=== PATIENT | female | born 1970 ===

== ENCOUNTER 2022-03-13 07:12 | Emergency (ER) | payer MEDICARE ==
[2022-03-13 07:58] LABS: ESTIMATED GFR 89 mL/min (>60)
[2022-03-13] MEDS: Iopamidol 755 Mg/ML 100 ML Bottle IV ONE (08:28)
[2022-03-13] MEDS: Ertapenem 1 GM in Sodium Chloride 0.9% 50 ML IV ONE (10:10)
[2022-03-13] MEDS: Lactated Ringers 1,000 ML IV ONE (10:10)
[2022-03-13] MEDS: Ketorolac 30 MG/ML SDV IVPUSH ONE (11:17)
[2022-03-13] MEDS: Glucose Gel 15 GM in 37.5 GM Tube PO ONE (11:51)
== END 2022-03-13 11:53 ==
LOC: FB.ED 07:12
DX: K35.80 Unspecified acute appendicitis (principal); E11.42 Type 2 diabetes mellitus with diabetic polyneuropathy; F17.210 Nicotine dependence, cigarettes, uncomplicated; D72.829 Elevated white blood cell count, unspecified; E66.9 Obesity, unspecified; Z88.0 Allergy status to penicillin; Z68.31 Body mass index [BMI] 31.0-31.9, adult
CPT/HCPCS: 36415; 74177; 80053; 81001; 85025; 96365; 96375; 99284; 99285-25; A9270-GY; J1335; J1885; J3490; J7120; Q9967